=== PATIENT | male | born 1990 ===

== ENCOUNTER 2017-03-02 19:36 | Emergency (ER) | payer OTHER ==
[2017-03-02 19:43] VITALS: BP 125/71; PULSE 92; RESP 18; TEMP 98.7; O2SAT 97
--- NOTE | 2017-03-02 20:40 | ED PDOC ---
Lower Extremity Pain/Injury Time Seen by Provider: 03/02/17 19:43 Chief Complaint (Nursing): Lower Extremity Problem/Injury Chief Complaint (Provider): Right knee pain History/Exam Limitations: no limitations Onset/Duration Of Symptoms: Hrs (x1) Current Symptoms Are (Timing): Still Present Pain Scale Rating Of: 4 Additional Complaint(s): Sven Baker, a 26 year old male, presents to the ED complaining of right knee pain. According to patient, he was kneeling down to tow picker toys when he began to feel pain and noticed some swelling. Patient denies any trauma to the knee. Past Medical History Reviewed: Historical Data, Nursing Documentation, Vital Signs Vital Signs: Last Vital Signs Temp 98.7 F 03/02/17 19:39 Pulse 92 H 03/02/17 19:39 Resp 18 03/02/17 19:39 BP 125/71 03/02/17 19:39 Pulse Ox 97 03/02/17 19:39 - Medical History PMH: No Chronic Diseases - Surgical History Surgical History: No Surg Hx - Family History Family History: States: Unknown Family Hx - Living Arrangements Living Arrangements: With Family - Social History Current smoker - smoking cessation education provided: No (Unknown If Ever Smoked) - Home Medications Home Medications: Ambulatory Orders Medication Instructions Recorded Cyclobenzaprine [Cyclobenzaprine 10 mg PO Q8 PRN #12 tab 01/16/16 HCl] Ibuprofen [Motrin] 600 mg PO TID PRN #30 tab 01/16/16 traMADol [Ultram] 50 mg PO Q8 PRN #12 tab 01/16/16 Ibuprofen [Motrin Tab] 800 mg PO Q6H PRN #20 tab 03/02/17 - Allergies Allergies/Adverse Reactions: Allergies Allergy/AdvReac Type Severity Reaction Status Date / Time No Known Allergies Allergy Verified 01/16/16 16:52 Review of Systems ROS Statement: Except As Marked, All Systems Reviewed And Found Negative Constitutional: Negative for: Fever, Chills Musculoskeletal: Positive for: Other (right knee pain) Physical Exam - Reviewed Nursing Documentation Reviewed: Yes Vital Signs Reviewed: Yes - Physical Exam Appears: Positive for: Well, Non-toxic, No Acute Distress Head Exam: Positive for: ATRAUMATIC, NORMAL INSPECTION, NORMOCEPHALIC Skin: Positive for: Normal Color, Warm, Dry. Negative for: Rash Eye Exam: Positive for: Normal appearance ENT: Positive for: Normal ENT Inspection Neck: Positive for: Normal Respiratory: Negative for: Respiratory Distress Extremity: Positive for: Normal ROM, Other (small effusion of the inferior patellar bursa; no warmth or erythema noted to knee.). Negative for: Tenderness Neurologic/Psych: Positive for: Alert, Oriented - ECG O2 Sat by Pulse Oximetry: 97 (RA) Pulse Ox Interpretation: Normal Medical Decision Making Medical Decision Makin Initial Impression 26 year old male presenting with right knee pain Initial Plan: * Reevaluation Scribe Attestation Documented by Mary Park acting as a scribe for Kassy Melendez PA-C. Scribe Attestation All medical record entries made by the Scribe were at my direction and personally dictated by me. I have reviewed the chart and agree that the record accurately reflects my personal performance of the history, physical exam, medical decision making, and the department course for this patient. I have also personally directed, reviewed, and agree with the discharge instructions and disposition. Disposition - Clinical Impression Clinical Impression: Knee bursitis - Patient ED Disposition Is Patient to be Admitted: No Counseled Patient/Family Regarding: Diagnosis, Need For Followup, Rx Given - Disposition Disposition: Routine/Home Disposition Time: 20:46 Condition: STABLE Prescriptions: Ibuprofen [Motrin Tab] 800 mg PO Q6H PRN #20 tab PRN Reason: Pain Instructions: Knee Bursitis (ED) Forms: [employer] (Yakut) Print Language: GU[place]AL[place] - POA Present On Arrival: None
== END 2017-03-02 20:58 | disposition home or self-care (01) ==
LOC: H.ER 19:36
DX: M70.51 Other bursitis of knee, right knee (principal)